=== PATIENT | female | born 1955 | race Caucasian/White ===

== ENCOUNTER 2020-12-01 01:09 | Emergency (ER) | payer OTHER ==
[~2020-12-01] VITALS: Ht 172.7 cm; Wt 82.0 kg
[2020-12-01] MEDS ORDERED: CLON0.1T PO (02:09)
[2020-12-01] MEDS ORDERED: HYDR25TA PO (02:09)
--- NOTE | 2020-12-01 02:10 | ED.ADGEN ---
Past Medical History Past Medical History: Arthritis, Other Additional Past Medical Histor: HEART MURMUR, MITRAL VALVE PROLAPSE Past Surgical History: Cholecystectomy Smoking Status: Current Every Day Smoker Alcohol Use: None General Adult EDM: Chief Complaint: BACK PAIN - NO INJURY HPI: HPI: Patient is a 65-year-old female with past medical history of chronic back pain who presents to the emergency room complaining of lower back pain and being out of her narcotic pain medicine. Patient is on a pain contract. She states that some of her pain pills went down the sink earlier this week. She has an appointment with her physician on Tuesday to get refills. She states that she ran out of her medication yesterday. She states she has been on these medications for several years. She states she has never ran out before this. She believes she is having some withdrawal symptoms. She states she is having some sneezing and yawning along with some body aches. Her back pain is worse than usual due to not having her pain medication. She did not call her physician when her pills went into the sink. Review of Systems: Review of Systems: Complete ROS is negative unless otherwise documented in HPI Current Medications: Current Medications Medications (Trade) Dose Ordered Sig/Dash Start Time Stop Time Status Last Admin Dose Admin Clonidine HCl (Catapres) 0.1 mg 1X ONCE 12/01/20 02:15 12/01/20 02:16 DC 12/01/20 02:23 0.1 MG Methocarbamol (Robaxin) 750 mg 1X ONCE 12/01/20 02:15 12/01/20 02:16 DC 12/01/20 02:22 750 MG Allergies: Allergies: Allergies Coded Allergies Type Severity Reaction Last Updated Verified NSAIDS (Non-Steroidal Anti-Inflamma Allergy Unknown 12/01/20 Yes Penicillins Allergy Unknown 12/01/20 Yes Physical Exam: PE: General: Awake, alert, NAD. Well Nourished, well hydrated. Cooperative HEENT: Atraumatic, EOMI, PERRL, airway patent, moist oral mucosa Neck: Supple, trachea midline Respiratory: CTA bilaterally, normal effort, no wheezing/crackles CV: RRR, no murmur, cap refill <2 GI: Soft, nondistended, nontender, no masses MSK: No obvious deformities Skin: Warm, dry, intact Neuro: A&O x3, speech NL, sensory and motor grossly intact, no focal deficits Psych: Normal affect, normal mood, not suicidal or homicidal Current Patient Data: Vital Signs: Vital Signs Date Time Temp Pulse Resp B/P (MAP) Pulse Ox O2 Delivery O2 Flow Rate FiO2 12/01/20 02:23 90 160/90 12/01/20 01:36 97.6 18 96 Room Air 97.6 EKG: EKG: [] Heart Score: C/O Chest Pain: N/A Risk Factors: Risk Factors: DM, Current or recent (<one month) smoker, HTN, HLP, family history of CAD, obesity. Risk Scores: Score 0 - 3: 2.5% MACE over next 6 weeks - Discharge Home Score 4 - 6: 20.3% MACE over next 6 weeks - Admit for Clinical Observation Score 7 - 10: 72.7% MACE over next 6 weeks - Early Invasive Strategies Radiology/Procedures: Radiology/Procedures: [] Course & Med Decision Making: Course & Med Decision Making Pertinent Labs and Imaging studies reviewed. (See chart for details) Patient is a 65-year-old female with chronic back pain who presents to the emergency room complaining of being out of her chronic narcotic medications. Patient is currently under a pain contract for chronic pain. I have discussed with the patient that I cannot provide her with a prescription or narcotic pain medicines for chronic pain here in the emergency room today. I did offer her alternative treatments. She states that muscle relaxers do not work for her. She is requesting 2 oxycodone to help her sleep. I have discussed with the patient that at this time I cannot provide her any narcotics. Did give her a dose of Robaxin here in the emergency room. Patient feels like she is having withdrawal symptoms. At this time she is very well-appearing and her vitals are normal. She does not have significant hypertension. We'll give her single dose of clonidine here in the emergency room and provide her with clonidine and hydroxyzine for withdrawal symptoms at home. I did discuss with the patient that clonidine can lower your blood pressure and if she does get low blood pressure that she should not take any further clonidine. I have discussed with her that she should follow-up with pain management. Patient's test results and vitals while in the ED were fully reviewed and discussed with the patient. Patient is stable and at this time does not need admission to the hospital. We have discussed strict return precautions and the importance of following up with their Primary Care Ph ysician. Patient stated understanding and was given an opportunity to ask any questions. Patient is in agreement with plan. Abe Disclaimer: Abe Disclaimer: This electronic medical record was generated, in whole or in part, using a voice recognition dictation system. Departure Departure Impression: Primary Impression: Chronic back pain Disposition: HOME / SELF CARE / HOMELESS Condition: STABLE Patient Instructions: Chronic Back Pain, Narcotic Withdrawal-Brief Scripts Hydroxyzine Hcl (HYDROXYZINE HCL) 25 Mg Tablet 1 TAB PO TID PRN for withdrawal, #12 TAB Prov: REBECA STEPHENS MD 12/01/20 Clonidine Hcl (CLONIDINE HCL) 0.1 Mg Tablet 1 TAB PO BID PRN for WITHDRAWAL IRRITABILITY, #8 TAB 0 Refills Prov: REBECA STEPHENS MD 12/01/20 REBECA STEPHENS MD December 01, 2020 02:09
[2020-12-01] MEDS ORDERED: cloNIDine HCL 0.1 MG TABLET PO ONE (02:15)
[2020-12-01] MEDS ORDERED: METHOCARBAMOL 750 MG TABLET PO ONE (02:15)
[2020-12-01 02:23] VITALS: BP 160/90
== END 2020-12-01 02:42 | disposition home or self-care (01) ==
LOC: ER 01:09
DX: G89.29 Other chronic pain (principal); M54.5 Low back pain; R06.7 Sneezing; M19.90 Unspecified osteoarthritis, unspecified site; F17.200 Nicotine dependence, unspecified, uncomplicated; Z90.49 Acquired absence of other specified parts of digestive tract; Z88.0 Allergy status to penicillin; Z88.6 Allergy status to analgesic agent
CPT/HCPCS: 99283